=== PATIENT | female | born 1980 | race Caucasian/White ===

== ENCOUNTER 2021-05-02 10:37 | Observation (INO) | payer OTHER ==
[2021-05-02] MEDS ORDERED: ONDANSETRON 4 MG/2 ML VIAL IVPUSH ONE (10:57)
[2021-05-02] MEDS ORDERED: SODIUM CHLORIDE 0.9% 1000 ML INFUS.BAG IV ONE (10:58)
[2021-05-02] MEDS ORDERED: ACETAMINOPHEN 1000 MG/100 ML VIAL (NON FORMULARY) IVPB ONE (10:58)
[2021-05-02] MEDS ORDERED: ACETAMINOPHEN INJECTION 100 ML IVPB ONE (11:09)
[2021-05-02] MEDS ORDERED: ONDANSETRON 4 MG/2 ML VIAL ONE (11:09)
[2021-05-02 11:38] LABS: HEMATOCRIT 35.1 % (32.4-45.2); HEMOGLOBIN 11.2 GM/dl (10.7-15.3); MCH 21.7 pg (25.7-33.7); MCHC 31.9 g/dl (32.0-36.0); MEAN CELL VOLUME 67.9 fl (80-96); PLATELET COUNT 249 10^3/uL (134-434); RBC 5.17 M/mm3 (3.60-5.2); RDW 18.4 % (11.6-15.6); WHITE BLOOD COUNT 11.1 K/mm3 (4.0-10.8)
[2021-05-02 11:44] LABS: ADD RBC MORPHOLOGY YES
[2021-05-02 11:46] LABS: ALBUMIN 3.3 g/dl (3.4-5.0); BILIRUBIN,TOTAL 0.6 mg/dl (0.2-1); CALCIUM 8.7 mg/dl (8.5-10); CREATININE 0.5 mg/dl (0.55-1.3); TOT PROT 6.6 g/dl (6.4-8.2)
[2021-05-02 14:47] LABS: ANISOCYTOSIS 1+
[2021-05-02 14:48] LABS: PLATELET ESTIMATE ADEQUATE
[2021-05-02] MEDS ORDERED: KETOROLAC TROMETHAMINE 30 MG/1 ML VIAL IVPUSH ONE (18:03)
[2021-05-02] MEDS ORDERED: KETOROLAC TROMETHAMINE 30 MG/1 ML VIAL ONE (18:12)
[2021-05-02] MEDS ORDERED: morphine CARPU-JECT 4 MG/1 ML DISP.SYRIN IVPUSH ONE ×2 (18:35→20:04)
[2021-05-02] MEDS ORDERED: morphine SULFATE 4 MG/ML VIAL ONE (18:41)
[2021-05-02] MEDS ORDERED: PIPERACILLIN/TAZOB 3.375 GM 3.375 GM in DEXTROSE 5%-WATER - 50 ML IVPB ONE (18:44)
[2021-05-02] MEDS ORDERED: PIPERACILLIN/TAZOBACTAM 3.375 GM VIAL IVPB ONE (18:48)
[2021-05-02] MEDS ORDERED: DOXYCYCLINE INJECTION 100 MG in DEXTROSE 5%-WATER 100 ML IVPB ONE (18:55)
[2021-05-02] MEDS ORDERED: DOXYCYCLINE HYCLATE 100 MG VIAL ONE (20:41)
[2021-05-03] MEDS ORDERED: KETOROLAC TROMETHAMINE 30 MG/1 ML VIAL IVPUSH ONE (00:40)
[2021-05-03] MEDS ORDERED: KETOROLAC TROMETHAMINE 15 MG/ML VIAL ONE (00:42)
[2021-05-03 04:32] VITALS: BMI 34.1
[2021-05-03] MEDS ORDERED: DEXTROSE 5%-WATER 100 ML IVPB ONE (09:15)
[2021-05-03] MEDS ORDERED: DOXYCYCLINE HYCLATE 100 MG VIAL ONE (09:15)
[2021-05-03] MEDS ORDERED: PIPERACILLIN/TAZOB 3.375 GM 3.375 GM in DEXTROSE 5%-WATER - 50 ML IVPB SCH (10:00)
[2021-05-03] MEDS ORDERED: DOXYCYCLINE INJECTION 100 MG in DEXTROSE 5%-WATER 100 ML IVPB SCH (10:00)
[2021-05-03 10:29] LABS: BASO % 0.4 % (0-2.0); EOS % 1.2 % (0-4.5); HEMATOCRIT 34.4 % (32.4-45.2); HEMOGLOBIN 10.8 GM/dL (10.7-15.3); LYMPH % 13.4 % (8-40); MCH 21.5 pg (25.7-33.7); MCHC 31.5 g/dl (32.0-36.0); MEAN CELL VOLUME 68.1 fl (80-96); MONO % 6.4 % (3.8-10.2); NEUT % 78.6 % (42.8-82.8); PLATELET COUNT 267 10^3/uL (134-434); RBC 5.05 M/mm3 (3.60-5.2); RDW 19.9 % (11.6-15.6); WHITE BLOOD COUNT 9.2 K/mm3 (4.0-10.0)
[2021-05-03] MEDS: ENOXAPARIN NA (PORCINE) 40 MG/0.4 ML DISP.SYRIN SQ SCH (10:50)
[2021-05-03 10:52] LABS: CALCIUM 8.3 mg/dL (8.5-10.1)
[2021-05-03 10:53] LABS: ALBUMIN 2.9 g/dl (3.4-5.0)
[2021-05-03] MEDS: ACETAMINOPHEN 1000 MG/100 ML VIAL (NON FORMULARY) IVPB PRN (10:55)
[2021-05-03 10:56] LABS: CREATININE 0.6 mg/dL (0.55-1.3)
[2021-05-03 10:58] LABS: BILIRUBIN,TOTAL 0.5 mg/dL (0.2-1); TOT PROT 6.7 g/dl (6.4-8.2)
[2021-05-03] MEDS: INSULIN SLIDING SCALE (NOVOLOG) 1 VIAL SQ SCH ×3 (14:13→21:58)
[2021-05-03] MEDS: PIPERACILLIN/TAZOB 3.375 GM 3.375 GM in DEXTROSE 5%-WATER - 50 ML IVPB SCH (17:36)
[2021-05-03] MEDS ORDERED: DEXTROSE 5%-WATER - 50 ML IVPB ONE (17:39)
[2021-05-03] MEDS ORDERED: PIPERACILLIN/TAZOBACTAM 3.375 GM VIAL IVPB ONE (17:39)
[2021-05-03] MEDS ORDERED: SIMETHICONE 80 MG TAB.CHEW (FP) PO ONE (23:55)
[2021-05-03] MEDS ORDERED: DOCUSATE SODIUM 100 MG CAPSULE (FP) PO ONE (23:55)
[2021-05-04] MEDS ORDERED: PIPERACILLIN/TAZOBACTAM 3.375 GM VIAL IVPB ONE ×2 (01:09→10:05)
[2021-05-04] MEDS ORDERED: DEXTROSE 5%-WATER - 50 ML IVPB ONE ×2 (01:10→10:05)
[2021-05-04] MEDS: PIPERACILLIN/TAZOB 3.375 GM 3.375 GM in DEXTROSE 5%-WATER - 50 ML IVPB SCH ×2 (01:35→10:25)
[2021-05-04] MEDS: ACETAMINOPHEN 1000 MG/100 ML VIAL (NON FORMULARY) IVPB PRN (06:03)
[2021-05-04] MEDS: INSULIN SLIDING SCALE (NOVOLOG) 1 VIAL SQ SCH ×2 (06:35→11:28)
[2021-05-04] MEDS ORDERED: ACETAMINOPHEN 325 MG TABLET (FP) PO PRN (10:04)
[2021-05-04] MEDS ORDERED: SIMETHICONE 80 MG TAB.CHEW (FP) PO PRN (10:04)
[2021-05-04] MEDS: ENOXAPARIN NA (PORCINE) 40 MG/0.4 ML DISP.SYRIN SQ SCH (10:25)
[2021-05-04 12:55] VITALS: BP 108/60; PULSE 80; TEMP 98.1
== END 2021-05-04 13:42 | disposition home or self-care (01) ==
LOC: FER 10:37 → INTOOBSV 05-03 03:02 → J5S 05-03 03:02 → UNDOADMOB 05-03 03:02 → MERGE 05-03 10:16 → J5S 05-03 10:16
PROVIDERS: ADMIT Internal Medicine; ATTEND Internal Medicine
PROC: 3E023GC Introduction of Other Therapeutic Substance into Muscle, Percutaneous Approach (ICD-10-PCS; principal; 2021-05-03)
PROC: 3E0333Z Introduction of Anti-inflammatory into Peripheral Vein, Percutaneous Approach (ICD-10-PCS; 2021-05-03)
PROC: 3E03329 Introduction of Other Anti-infective into Peripheral Vein, Percutaneous Approach (ICD-10-PCS; 2021-05-03)
PROC: 3E0337Z Introduction of Electrolytic and Water Balance Substance into Peripheral Vein, Percutaneous Approach (ICD-10-PCS; 2021-05-03)
DX: R10.9 Unspecified abdominal pain (principal); E11.9 Type 2 diabetes mellitus without complications; N20.0 Calculus of kidney; N83.299 Other ovarian cyst, unspecified side; D68.61 Antiphospholipid syndrome; N92.0 Excessive and frequent menstruation with regular cycle
CPT/HCPCS: 36415; 74177-TC; 76830-TC; 76856-TC; 80053; 81003; 82962; 84703; 85025; 85730; 87086; 96365; 96367; 96372; 96374; 96375; 96376; 99285-25; C9803; G0378; J0131; Q9967; U0003; U0005

== ENCOUNTER 2021-06-01 12:38 | Emergency (ER) | payer OTHER ==
[2021-06-01] MEDS ORDERED: ACETAMINOPHEN 1000 MG/100 ML VIAL IVPB ONE (13:00)
[2021-06-01] MEDS ORDERED: KETOROLAC TROMETHAMINE 30 MG/1 ML VIAL IVPUSH ONE (13:00)
[2021-06-01] MEDS ORDERED: SODIUM CHLORIDE 1,000 ML IV STA (13:00)
[2021-06-01 13:01] VITALS: BP 124/69; PULSE 72; TEMP 99; BMI 32.1
[2021-06-01] MEDS ORDERED: ACETAMINOPHEN INJECTION 100 ML IVPB ONE (13:21)
[2021-06-01] MEDS ORDERED: KETOROLAC TROMETHAMINE 30 MG/1 ML VIAL ONE (13:21)
[2021-06-01 13:24] LABS: HCG,QUALITATIVE URINE Negative
[2021-06-01 13:45] LABS: BILIRUBIN,TOTAL 0.6 mg/dl (0.2-1); CALCIUM 9.1 mg/dl (8.5-10); CREATININE 0.6 mg/dl (0.55-1.3); TOT PROT 8.1 g/dl (6.4-8.2)
[2021-06-01 13:50] LABS: BASO % 1.9 % (0-2.0); HEMATOCRIT 38.5 % (32.4-45.2); HEMOGLOBIN 12.1 GM/dl (10.7-15.3); LYMPH % 11.5 % (8-40); MCHC 31.4 g/dl (32.0-36.0); MEAN CELL VOLUME 70.2 fl (80-96); MEAN PLT VOLUME 8.8 fl (7.5-11.1); MONO % 6.2 % (3.8-10.2); NEUT % 79.4 % (42.8-82.8); PLATELET COUNT 292 10^3/uL (134-434); RBC 5.48 M/mm3 (3.60-5.2); RDW 18.8 % (11.6-15.6); WHITE BLOOD COUNT 12.1 K/mm3 (4.0-10.8)
[2021-06-01 13:51] LABS: ADD RBC MORPHOLOGY YES
[2021-06-01 14:16] LABS: ANISOCYTOSIS 1+
[2021-06-01] MEDS ORDERED: oxyCODONE HCL 5 MG TABLET PO ONE (15:46)
[2021-06-01] MEDS ORDERED: oxyCODONE HCL 5 MG TABLET ONE (15:50)
== END 2021-06-01 16:00 | disposition home or self-care (01) ==
LOC: FER 12:38
PROC: 3E0333Z Introduction of Anti-inflammatory into Peripheral Vein, Percutaneous Approach (ICD-10-PCS; principal; 2021-06-01)
PROC: 3E0333Z Introduction of Anti-inflammatory into Peripheral Vein, Percutaneous Approach (ICD-10-PCS; 2021-06-01)
PROC: 3E0337Z Introduction of Electrolytic and Water Balance Substance into Peripheral Vein, Percutaneous Approach (ICD-10-PCS; 2021-06-01)
DX: R10.2 Pelvic and perineal pain (principal); D27.0 Benign neoplasm of right ovary
CPT/HCPCS: 36415; 76856-TC; 80053; 81003; 84703; 85025; 87086; 96361; 96374; 96375; 99285-25; J0131

== ENCOUNTER 2021-06-21 13:27 | Emergency (ER) | payer OTHER ==
[2021-06-21 13:46] VITALS: BMI 33.0
[2021-06-21] MEDS ORDERED: CASIRIVIMAB/IMDEVIMAB 10 ML in SODIUM CHLORIDE 100 ML IVPB ONE (14:11)
[2021-06-21 15:47] VITALS: TEMP 98
[2021-06-21 16:56] VITALS: BP 105/65; PULSE 72
[2021-06-21 17:51] LABS: BASO % 0.5 % (0-2.0); EOS % 1.4 % (0-4.5); HEMATOCRIT 37.3 % (32.4-45.2); HEMOGLOBIN 12.1 GM/dL (10.7-15.3); LYMPH % 17.1 % (8-40); MCH 22.8 pg (25.7-33.7); MCHC 32.5 g/dl (32.0-36.0); MEAN CELL VOLUME 70.2 fl (80-96); MEAN PLT VOLUME 8.2 fl (7.5-11.1); MONO % 6.4 % (3.8-10.2); NEUT % 74.6 % (42.8-82.8); PLATELET COUNT 299 10^3/uL (134-434); RBC 5.31 M/mm3 (3.60-5.2); RDW 18.7 % (11.6-15.6); WHITE BLOOD COUNT 9.7 K/mm3 (4.0-10.0)
[2021-06-21 18:11] LABS: CALCIUM 9.2 mg/dL (8.5-10.1)
[2021-06-21 18:12] LABS: ALBUMIN 3.6 g/dl (3.4-5.0); BLOOD UREA NITROGEN 7.6 mg/dL (7-18)
[2021-06-21 18:15] LABS: CREATININE 0.6 mg/dL (0.55-1.3)
[2021-06-21 18:16] LABS: TOT PROT 8.4 g/dl (6.4-8.2)
[2021-06-21 18:17] LABS: BILIRUBIN,TOTAL 0.4 mg/dL (0.2-1)
== END 2021-06-21 17:38 | disposition home or self-care (01) ==
LOC: JCOVINFU 13:27
DX: U07.1 COVID-19 (principal)
CPT/HCPCS: 36415; 80053; 85025; 99284-25; M0240; Q0240

== ENCOUNTER 2021-08-02 20:30 | Emergency (ER) | payer OTHER ==
[2021-08-02 20:40] VITALS: TEMP 98.4; BMI 32.1
[2021-08-02] MEDS ORDERED: SODIUM CHLORIDE 1,000 ML IV ONE (20:58)
[2021-08-02] MEDS ORDERED: ONDANSETRON 4 MG/2 ML VIAL IVPUSH ONE (20:58)
[2021-08-02] MEDS ORDERED: morphine CARPU-JECT 4 MG/1 ML DISP.SYRIN IVPUSH ONE (20:58)
[2021-08-02] MEDS ORDERED: morphine SULFATE 4 MG/ML VIAL ONE (21:10)
[2021-08-02] MEDS ORDERED: ONDANSETRON 4 MG/2 ML VIAL ONE (21:10)
[2021-08-02 21:18] LABS: BASO % 2.3 % (0-2.0); EOS % 1.6 % (0-4.5); HEMATOCRIT 37.1 % (32.4-45.2); HEMOGLOBIN 11.8 GM/dl (10.7-15.3); LYMPH % 8.9 % (8-40); MCH 22.9 pg (25.7-33.7); MCHC 31.8 g/dl (32.0-36.0); MEAN CELL VOLUME 72.1 fl (80-96); MEAN PLT VOLUME 8.6 fl (7.5-11.1); NEUT % 83.2 % (42.8-82.8); PLATELET COUNT 283 10^3/uL (134-434); RBC 5.14 M/mm3 (3.60-5.2); RDW 16.1 % (11.6-15.6); WHITE BLOOD COUNT 14.3 K/mm3 (4.0-10.8)
[2021-08-02 21:23] LABS: ADD RBC MORPHOLOGY YES
[2021-08-02 21:31] LABS: ALK PHOS 86 U/L (45-117); ANION GAP 11 MMOL/L (8-16); BILIRUBIN,TOTAL 0.6 mg/dl (0.2-1); CALCIUM 9.1 mg/dl (8.5-10); CHLORIDE 102 mmol/L (98-107); CO2 24 mmol/L (21-32); CREATININE 0.6 mg/dl (0.55-1.3); GLUCOSE,RANDOM 123 mg/dl (74-106); SGOT/AST 16 U/L (15-37); SGPT/ALT 14 U/L (13-61); SODIUM 137 mmol/L (136-145); TOT PROT 7.7 g/dl (6.4-8.2)
[2021-08-02 22:55] LABS: ANISOCYTOSIS 1+; PLATELET ESTIMATE ADEQUATE
[2021-08-03 00:47] VITALS: BP 112/79; PULSE 78
== END 2021-08-03 00:52 | disposition home or self-care (01) ==
LOC: FER 20:30
PROC: 3E033NZ Introduction of Analgesics, Hypnotics, Sedatives into Peripheral Vein, Percutaneous Approach (ICD-10-PCS; principal; 2021-08-02)
PROC: 3E033GC Introduction of Other Therapeutic Substance into Peripheral Vein, Percutaneous Approach (ICD-10-PCS; 2021-08-02)
PROC: 3E0337Z Introduction of Electrolytic and Water Balance Substance into Peripheral Vein, Percutaneous Approach (ICD-10-PCS; 2021-08-02)
DX: N83.201 Unspecified ovarian cyst, right side (principal); N70.11 Chronic salpingitis
CPT/HCPCS: 36415; 74177-TC; 76856-TC; 80053; 81003; 83605; 84702; 85025; 86850; 86900; 86901; 96361; 96374; 96375; 99285-25; C9803; Q9967; U0003; U0005

== ENCOUNTER 2023-01-26 10:45 | Emergency (ER) | payer OTHER ==
[2023-01-26 10:55] VITALS: BP 105/68; PULSE 97; RESP 18; TEMP 98.4; BMI 32.8
[2023-01-26] MEDS ORDERED: ACETAMINOPHEN 1000 MG/100 ML BAG IVPB ONE (11:05)
[2023-01-26] MEDS ORDERED: SODIUM CHLORIDE 0.9% 500 ML INFUS.BAG IV ONE (11:05)
[2023-01-26] MEDS ORDERED: ONDANSETRON 4 MG/2 ML VIAL IVPUSH ONE (11:05)
[2023-01-26] MEDS ORDERED: FAMOTIDINE 20 MG/50 ML IVPB 20 MG/50 ML MG IVPB ONE ×2 (11:06→11:16)
[2023-01-26] MEDS ORDERED: ONDANSETRON 4 MG/2 ML VIAL ONE (11:16)
[2023-01-26] MEDS ORDERED: ACETAMINOPHEN INJECTION 100 ML IVPB ONE (11:16)
[2023-01-26 11:47] LABS: ALBUMIN 3.8 g/dl (3.4-5.0); BILIRUBIN,TOTAL 0.7 mg/dl (0.2-1); CALCIUM 8.7 mg/dl (8.5-10); CREATININE 0.7 mg/dl (0.55-1.3); TOT PROT 7.7 g/dl (6.4-8.2)
[2023-01-26 12:15] LABS: EPITHELIAL CELLS MANY /hpf
[2023-01-26] MEDS ORDERED: POTASSIUM CHLORIDE ORAL LIQUID 20 MEQ/15 ML PO ONE (12:42)
[2023-01-26] MEDS ORDERED: POTASSIUM CHLORIDE ORAL LIQUID 20 MEQ/15 ML ONE (12:55)
[2023-01-26 13:03] LABS: BASO % 0.3 % (0-2.0); HEMATOCRIT 41.8 % (32.4-45.2); HEMOGLOBIN 13.8 GM/dL (10.7-15.3); LYMPH % 10.9 % (8-40); MCH 25.3 pg (25.7-33.7); MCHC 32.9 g/dl (32.0-36.0); MEAN CELL VOLUME 76.8 fl (80-96); MEAN PLT VOLUME 7.5 fl (7.5-11.1); MONO % 5.2 % (3.8-10.2); NEUT % 83.6 % (42.8-82.8); PLATELET COUNT 243 10^3/uL (134-434); RBC 5.44 M/mm3 (3.60-5.2); RDW 14.3 % (11.6-15.6)
== END 2023-01-26 13:30 | disposition home or self-care (01) ==
LOC: FER 10:45
PROC: 3E033GC Introduction of Other Therapeutic Substance into Peripheral Vein, Percutaneous Approach (ICD-10-PCS; principal; 2023-01-26)
DX: R11.2 Nausea with vomiting, unspecified (principal); R19.7 Diarrhea, unspecified
CPT/HCPCS: 36415; 80053; 81003; 81015; 84703; 85025; 99284-25

== ENCOUNTER 2023-06-26 05:55 | Emergency (ER) | payer OTHER ==
[2023-06-26] MEDS ORDERED: ONDANSETRON 4 MG/2 ML VIAL IVPUSH ONE (06:08)
[2023-06-26] MEDS ORDERED: KETOROLAC TROMETHAMINE 30 MG/1 ML VIAL IVPUSH ONE (06:08)
[2023-06-26] MEDS ORDERED: KETOROLAC TROMETHAMINE 30 MG/1 ML VIAL ONE (06:08)
[2023-06-26] MEDS ORDERED: SODIUM CHLORIDE 1,000 ML IV STA (06:08)
[2023-06-26] MEDS ORDERED: ONDANSETRON 4 MG/2 ML VIAL ONE (06:08)
[2023-06-26 06:23] VITALS: BMI 30.2
[2023-06-26 07:02] LABS: BASO % 0.5 % (0-2.0); EOS % 1.4 % (0-4.5); HEMOGLOBIN 15.3 GM/dL (10.7-15.3); LYMPH % 26.7 % (8-40); MCH 25.1 pg (25.7-33.7); MCHC 32.6 g/dl (32.0-36.0); MEAN CELL VOLUME 77.1 fl (80-96); MEAN PLT VOLUME 8.4 fl (7.5-11.1); MONO % 10.4 % (3.8-10.2); PLATELET COUNT 296 10^3/uL (134-434); RDW 14.2 % (11.6-15.6); WHITE BLOOD COUNT 8.7 K/mm3 (4.0-10.0)
[2023-06-26] MEDS ORDERED: SODIUM CHLORIDE 0.9% 1000 ML INFUS.BAG IV ONE ×2 (07:21→09:30)
[2023-06-26 09:29] LABS: HCG,QUALITATIVE URINE Negative
[2023-06-26 09:32] LABS: ALBUMIN 4.3 g/dl (3.4-5.0); BILIRUBIN,TOTAL 0.6 mg/dL (0.2-1); BLOOD UREA NITROGEN 3.9 mg/dL (7-18); CALCIUM 9.9 mg/dL (8.5-10.1); CREATININE 0.7 mg/dL (0.55-1.3); POTASSIUM 3.5 mmol/L (3.5-5.1); TOT PROT 8.2 g/dl (6.4-8.2)
[2023-06-26 09:49] LABS: EPITHELIAL CELLS FEW /hpf
[2023-06-26 11:17] VITALS: BP 118/76; PULSE 79; RESP 18; TEMP 98.8
[2023-06-26] MEDS ORDERED: CEPHALEXIN MONOHYDRATE 500 MG CAPSULE (UD) PO ONE (11:26)
[2023-06-26] MEDS ORDERED: CEPHALEXIN MONOHYDRATE 500 MG CAPSULE (UD) ONE (11:36)
== END 2023-06-26 12:18 | disposition home or self-care (01) ==
LOC: FER 05:55
PROC: 3E0333Z Introduction of Anti-inflammatory into Peripheral Vein, Percutaneous Approach (ICD-10-PCS; principal; 2023-06-26)
PROC: 3E033GC Introduction of Other Therapeutic Substance into Peripheral Vein, Percutaneous Approach (ICD-10-PCS; 2023-06-26)
PROC: 3E0337Z Introduction of Electrolytic and Water Balance Substance into Peripheral Vein, Percutaneous Approach (ICD-10-PCS; 2023-06-26)
DX: R10.9 Unspecified abdominal pain (principal); N20.0 Calculus of kidney; E86.0 Dehydration; R11.2 Nausea with vomiting, unspecified
CPT/HCPCS: 36415; 74176-TC; 80053; 81003; 81015; 84703; 85025; 87086; 96361; 96374; 96375; 99284-25

== ENCOUNTER 2023-06-28 20:46 | Emergency (ER) | payer OTHER ==
[2023-06-28 21:03] VITALS: BP 120/88; PULSE 78; RESP 16; TEMP 98.1; BMI 30.2
[2023-06-28] MEDS ORDERED: ONDANSETRON *ODT* 4 MG TABLET ONE (21:43)
[2023-06-28] MEDS ORDERED: ONDANSETRON *ODT* 4 MG TABLET SL ONE (21:43)
[2023-06-28] MEDS ORDERED: KETOROLAC TROMETHAMINE 30 MG/1 ML VIAL ONE (22:00)
[2023-06-28] MEDS ORDERED: KETOROLAC TROMETHAMINE 30 MG/1 ML VIAL IVPUSH ONE (22:01)
[2023-06-28] MEDS ORDERED: SODIUM CHLORIDE 1,000 ML IV ONE (22:01)
== END 2023-06-28 23:32 | disposition home or self-care (01) ==
LOC: FER 20:46
PROC: 3E0333Z Introduction of Anti-inflammatory into Peripheral Vein, Percutaneous Approach (ICD-10-PCS; principal; 2023-06-28)
PROC: 3E0337Z Introduction of Electrolytic and Water Balance Substance into Peripheral Vein, Percutaneous Approach (ICD-10-PCS; 2023-06-28)
DX: R10.9 Unspecified abdominal pain (principal); R11.2 Nausea with vomiting, unspecified; N20.0 Calculus of kidney
CPT/HCPCS: 99284-25; Q0162

== ENCOUNTER 2023-07-16 17:06 | Observation (INO) | payer OTHER ==
[2023-07-16] MEDS ORDERED: SODIUM CHLORIDE 0.9% 500 ML INFUS.BAG IV ONE (18:11)
[2023-07-16 19:28] LABS: HEMATOCRIT 43.6 % (32.4-45.2); HEMOGLOBIN 14.4 G/dL (10.7-15.3); MCH 26.3 pg (25.7-33.7); MCHC 33.1 g/dl (32.0-36.0); MEAN CELL VOLUME 79.5 fl (80-96); MEAN PLT VOLUME 7.7 fl (7.5-11.1); PLATELET COUNT 209.1 10^3/uL (134-434); RBC 5.49 10^6/uL (3.60-5.2); RDW 16.9 % (11.6-15.6); WHITE BLOOD COUNT 8.6 10^3/uL (4.0-10.8)
[2023-07-16] MEDS ORDERED: ONDANSETRON 4 MG/2 ML VIAL IVPUSH ONE (19:34)
[2023-07-16] MEDS ORDERED: ONDANSETRON 4 MG/2 ML VIAL ONE (19:34)
[2023-07-16] MEDS ORDERED: SODIUM CHLORIDE 1,000 ML IV ONE (19:35)
[2023-07-16 19:39] LABS: ALBUMIN 4.1 g/dl (3.4-5.0); ALK PHOS 57 U/L (45-117); ANION GAP 15 MMOL/L (8-16); BILIRUBIN,TOTAL 0.7 mg/dl (0.2-1); BLOOD UREA NITROGEN 3.6 mg/dl (7-18); CALCIUM 9.1 mg/dl (8.5-10.1); CHLORIDE 96 mmol/L (98-107); CO2 31 mmol/L (21-32); CREATININE 0.5 mg/dl (0.6-1.3); GLUCOSE,RANDOM 74 mg/dl (74-106); SGOT/AST 23.4 U/L (15-37); SGPT/ALT 22.5 U/L (7-52); SODIUM 142 mmol/L (136-145); TOT PROT 6.5 g/dl (6.4-8.2)
[2023-07-16 19:44] LABS: POTASSIUM 2.9 mmol/L (3.5-5.1)
[2023-07-16] MEDS ORDERED: POTASSIUM CHLORIDE ORAL LIQUID 20 MEQ/15 ML PO ONE (19:48)
[2023-07-16] MEDS ORDERED: POTASSIUM CHLORIDE ORAL LIQUID 20 MEQ/15 ML ONE (19:48)
[2023-07-16 19:50] LABS: PLATELET ESTIMATE ADEQUATE
[2023-07-16] MEDS: KCL 10 MEQ IVPB 10 MEQ/100 ML INFUS.BAG IVPB SCH ×3 (19:59→22:24)
[2023-07-16] MEDS ORDERED: MAGNESIUM 1GM/D5W - 1 GM/100 ML IVPB IVPB ONE ×2 (20:39→21:37)
[2023-07-16 22:12] LABS: LIPASE 222 U/L (73-393)
[2023-07-16] MEDS ORDERED: ONDANSETRON 4 MG/2 ML VIAL IVPUSH PRN (22:17)
[2023-07-16 22:56] VITALS: RESP 18
[2023-07-16 23:02] VITALS: BMI 30.2
[2023-07-16] MEDS ORDERED: DEXTROSE 5%-0.45% SALINE 1,000 ML IV SCH (23:15)
[2023-07-17 06:54] VITALS: BP 103/52; PULSE 65; TEMP 98.6
[2023-07-17 09:42] LABS: ANION GAP 16 MMOL/L (8-16); CALCIUM 7.4 mg/dl (8.5-10.1); CHLORIDE 104 mmol/L (98-107); CO2 23 mmol/L (21-32); CREATININE 0.4 mg/dl (0.6-1.3); GLUCOSE,RANDOM 66 mg/dl (74-106); SODIUM 143 mmol/L (136-145)
[2023-07-17 10:42] LABS: BASO % 0.6 % (0-2.0); EOS % 1.2 % (0-4.5); HEMATOCRIT 39.4 % (32.4-45.2); HEMOGLOBIN 12.8 GM/dL (10.7-15.3); LYMPH % 20.7 % (8-40); MCH 25.4 pg (25.7-33.7); MCHC 32.5 g/dl (32.0-36.0); MEAN CELL VOLUME 78.1 fl (80-96); MEAN PLT VOLUME 7.8 fl (7.5-11.1); MONO % 9.3 % (3.8-10.2); NEUT % 68.2 % (42.8-82.8); PLATELET COUNT 190 10^3/uL (134-434); RBC 5.04 M/mm3 (3.60-5.2); WHITE BLOOD COUNT 6.7 K/mm3 (4.0-10.0)
== END 2023-07-17 10:01 | disposition home or self-care (01) ==
LOC: FER 17:06 → FM/S 20:44
PROVIDERS: ADMIT Internal Medicine
PROC: 3E033GC Introduction of Other Therapeutic Substance into Peripheral Vein, Percutaneous Approach (ICD-10-PCS; principal; 2023-07-16)
PROC: 3E0337Z Introduction of Electrolytic and Water Balance Substance into Peripheral Vein, Percutaneous Approach (ICD-10-PCS; 2023-07-16)
DX: E87.6 Hypokalemia (principal); Z98.84 Bariatric surgery status; E11.9 Type 2 diabetes mellitus without complications; Z90.49 Acquired absence of other specified parts of digestive tract; Z91.040 Latex allergy status; Z91.148 Patient's other noncompliance with medication regimen for other reason
CPT/HCPCS: 36415; 71045-TC-FY; 74019-TC-FY; 80048; 80053; 83605; 83690; 83735; 84484; 85025; 85027; 93005; 96361; 96365; 96375; 96376; 99285-25; G0378

== ENCOUNTER 2024-03-21 20:41 | Emergency (ER) | payer OTHER ==
[2024-03-21 20:49] VITALS: BP 141/84; PULSE 81; RESP 16; TEMP 98.7; BMI 29.1
[2024-03-21] MEDS ORDERED: ACETAMINOPHEN INJECTION 100 ML IVPB ONE (21:09)
[2024-03-21] MEDS: ACETAMINOPHEN 1000 MG/100 ML BAG IVPB ONE (21:15)
[2024-03-21 21:22] LABS: HEMATOCRIT 43.6 % (32.4-45.2); MEAN CELL VOLUME 81.2 fl (80-96); MEAN PLT VOLUME 7.7 fl (7.5-11.1); PLATELET COUNT 230.8 10^3/uL (134-434); RBC 5.37 10^6/uL (3.60-5.2); RDW 14.5 % (11.6-15.6); WHITE BLOOD COUNT 9.2 10^3/uL (4.0-10.8)
[2024-03-21 21:32] LABS: INR 1.07 (0.83-1.09); PROTHROMBIN TIME (PATIENT) 12.2 SEC (9.7-13.0)
[2024-03-21 21:43] LABS: ALBUMIN 4.3 g/dl (3.4-5.0); ALK PHOS 77 U/L (45-117); ANION GAP 7 mmol/L (4-13); BILIRUBIN,TOTAL 0.5 mg/dl (0.2-1); CALCIUM 9.8 mg/dl (8.5-10.1); CHLORIDE 103 mmol/L (98-107); CO2 28 mmol/L (21-32); CREATININE 0.7 mg/dl (0.6-1.3); GLUCOSE,RANDOM 91 mg/dl (74-106); PLATELET ESTIMATE ADEQUATE; POTASSIUM 4.2 mmol/L (3.5-5.1); SGOT/AST 11 U/L (15-37); SGPT/ALT 6 U/L (7-52); SODIUM 138 mmol/L (136-145); TOT PROT 7.3 g/dl (6.4-8.2)
[2024-03-21] MEDS: SODIUM CHLORIDE 0.9% 500 ML INFUS.BAG IV ONE (22:59)
[2024-03-21 23:01] LABS: EPITHELIAL CELLS 0-5 /hpf
== END 2024-03-21 23:16 | disposition home or self-care (01) ==
LOC: FER 20:41
PROC: 3E033NZ Introduction of Analgesics, Hypnotics, Sedatives into Peripheral Vein, Percutaneous Approach (ICD-10-PCS; principal; 2024-03-21)
DX: R03.1 Nonspecific low blood-pressure reading (principal); F41.9 Anxiety disorder, unspecified; M79.10 Myalgia, unspecified site; K92.1 Melena
CPT/HCPCS: 36415; 74177-TC; 80053; 81003; 81015; 85025; 85610; 99285-25; J0131; Q9967

== ENCOUNTER 2024-06-27 20:38 | Emergency (ER) | payer OTHER ==
[2024-06-27 21:00] VITALS: BP 107/64; PULSE 78; RESP 16; TEMP 98.8; BMI 29.1
[2024-06-27] MEDS ORDERED: ACETAMINOPHEN 500 MG TABLET (FP) ONE (21:01)
[2024-06-27] MEDS ORDERED: LIDOCAINE 5% TOPICAL PATCH ONE (21:02)
[2024-06-27] MEDS ORDERED: METHOCARBAMOL 500 MG TABLET ONE (21:02)
[2024-06-27] MEDS ORDERED: KETOROLAC TROMETHAMINE 30 MG/1 ML VIAL ONE (21:02)
[2024-06-27] MEDS: ACETAMINOPHEN 325 MG TABLET (FP) PO ONE (21:07)
[2024-06-27] MEDS: LIDOCAINE 5% TOPICAL PATCH TP ONE (21:07)
[2024-06-27] MEDS: KETOROLAC TROMETHAMINE 30 MG/1 ML VIAL IM ONE (21:07)
[2024-06-27] MEDS: METHOCARBAMOL 500 MG TABLET PO ONE (21:07)
[2024-06-27] MEDS: LIDOCAINE PATCH REMOVAL MC SCH (21:08)
== END 2024-06-27 21:56 | disposition home or self-care (01) ==
LOC: FER 20:38
PROC: 3E0233Z Introduction of Anti-inflammatory into Muscle, Percutaneous Approach (ICD-10-PCS; principal; 2024-06-27)
DX: M54.50 Low back pain, unspecified (principal); X50.1XXA Overexertion from prolonged static or awkward postures, initial encounter
CPT/HCPCS: 99284-25